=== PATIENT | female | born 1985 | race Caucasian/White ===

== ENCOUNTER 2025-07-19 08:06 | Emergency (ER) | payer OTHER ==
[~2025-07-19] VITALS: Ht 157.5 cm; Wt 118.2 kg
[2025-07-19 08:11] VITALS: BP 168/102; PULSE 78; TEMP 97.9; O2SAT 98
[2025-07-19 08:46] LABS: LEUKOCYTE ESTERASE ,URINE TRACE (Neg); NITRITES, URINE NEGATIVE (Neg); OCCULT BLOOD,URINE LARGE (Neg)
[2025-07-19 08:50] LABS: URINE HCG NEGATIVE (NEG)
[2025-07-19 08:51] LABS: UA COLLECTION TYPE CLN CATCH MIDSTREAM
[2025-07-19 08:55] LABS: SQUAMOUS EPITHELIAL CELL,UR FEW /LPF (FEW); YEAST FEW /HPF (NEGATIVE)
--- NOTE | 2025-07-19 09:19 | Physician Documentation ---
History of Present Illness ~ Chief Complaint: Flank Pain Stated Complaint: KIDNEY STONES Time Seen by MD: 08:52 HPI 39-year-old female presents to the ED with a complaint of right flank and back pain. States she does have a history of kidney stones. 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 He had denies any urinary symptoms denies any fevers or nausea vomiting. States that the pain is worse when sitting to standing. Day of Onset: Jul 19, 2025 Medication Reconciliation Allergies: Coded Allergies: No Known Allergies (Unverified , 07/19/25) Scheduled Sulfamethoxazole/Trimethoprim (Septra Ds Tab), 1 TAB PO Q12H Review of Systems All Other Systems at this time: Reviewed and Negative ROS As stated above in the HPI, otherwise all systems are reviewed and negative. Physical Exam Physical Exam Vital Signs: Temperature: 97.9, Heart Rate: 78, Respiratory Rate: 15, BP: 168/102, Pulse Oximetry: 98, Weight: 118.180 Oxygen Flow Rate: 0 Physical Exam General: Alert, no apparent distress. Back: Tender to the right lumbar region via palpation negative CVA tenderness Respiratory: Lungs clear, no respiratory distress. Cardiovascular: Regular rate and rhythm, no murmurs. Gastrointestinal: Soft, nontender, nondistended. Bowels sounds present. Neurologic: Oriented x4. Psychiatric: Normal mood and affect. Skin: Normal color, warm and dry. No edema, no ecchymosis. Progress Results/Orders Results/Orders Orders - JACOB BARBOUR PHILOSOPHY PROFESSOR Ct Abdomen Pelvis (07/19/25 11:15) Completed Orders - JACOB BARBOUR PHILOSOPHY PROFESSOR Cbc/Diff (07/19/25 08:59) BMP (07/19/25 08:59) Lipase (07/19/25 08:59) CMP (07/19/25 08:59) Ketorolac Trometh 30mg/Ml Vial (Toradol (07/19/25 09:15) Ct Abdomen Pelvis (07/19/25 11:15) Vital Signs 07/19/25 07/19/25 07/19/25 08:11 09: 09:30 Temp 97.9 Pulse 78 Resp 15 15 15 B/P (MAP) 168/102 Pulse Ox 98 O2 Flow Rate 0 Laboratory Tests Test 07/19/25 08:16 07/19/25 09:48 Urine Specimen Description Cln catch midstream Urine Color Yellow Urine Clarity Slightly cloudy Urine pH 6.0 Urine Specific [place] 1.015 Urine Protein Negative Urine Glucose (UA) >=1000 H Urine Ketones Negative Urine Occult Blood Large H Urine Nitrite Negative Urine Bilirubin Negative Urine Urobilinogen 0.2 Urine Leukocyte Esterase Trace H Urine RBC 3-10 Urine WBC 10-20 H Urine Squamous Epithelial Cells Few Urine Bacteria 1+ Urine Yeast Few Urine Culture Indicated Indicated Volume Urine Centrifuged 10 ml Urine HCG, Qualitative Negative Urine Comment White Blood Count 4.8 Red Blood Count 5.03 Hemoglobin 13.8 Hematocrit 40.9 Mean Corpuscular Volume 81.3 Mean Corpuscular Hemoglobin 27.5 Mean Corpuscular Hemoglobin Concent 33.8 Red Cell Distribution Width 13.6 Platelet Count 191 Mean Platelet Volume 9.9 Neutrophils (%) (Auto) 61.6 Lymphocytes (%) (Auto) 27.6 Monocytes (%) (Auto) 7.2 Eosinophils (%) (Auto) 2.9 Basophils (%) (Auto) 0.7 Neutrophils # (Auto) 2.9 Lymphocytes # (Auto) 1.3 Monocytes # (Auto) 0.3 Eosinophils # (Auto) 0.1 Basophils # (Auto) 0.0 CBC Comment Sodium Level 140 Potassium Level 4.4 Chloride Level 105 Carbon Dioxide Level 26.6 Anion Gap 8 Blood Urea Nitrogen 15 Creatinine 0.45 Estimated GFR/1.73 m2 > 90 BUN/Creatinine Ratio 33.3 H Glucose Level 102 Calcium Level 8.4 L Total Bilirubin 0.4 Aspartate Amino Transf (AST/SGOT) 18 Alanine Aminotransferase (ALT/SGPT) 27 Alkaline Phosphatase 49 Total Protein 7.0 Albumin 3.5 Globulin 3.5 Albumin/Globulin Ratio 1.0 L Lipase 22 Chemistry Comments Microbiology Date/Time Source Procedure Growth Status 07/19/25 08:55 Urine Clean Catch Midstream Urine Culture - Preliminary Culture received. Resulted Medical Decision Making Additional information obtaine: N/A Findings Assured the patient that her CT showed no signs of kidney stones. Does have a minor UTI which I will treat her for. This does not come as a surprise as she recently had a UTI and it sounds like bacteria did not fully resolve we will send her home on sulfa as she was given Keflex before Differential Dx:Considerations: Fracture, Pyelonephritis, Urinary obstruction, Urinary tract infection Departure Disposition: 01 HOME / SELF CARE / HOMELESS Impression: Primary Impression: Strain of lumbar region Additional Impression: Acute urinary tract infection Condition: Improved Discharge Instructions: Lumbosacral Strain Referrals: NO PRIMARY CARE PROVIDER (PCP) Prescriptions Sulfamethoxazole/Trimethoprim (Septra Ds Tab) 800 Mg/160 Mg Tablet 1 TAB PO Q12H for 7 Days, #14 TAB Prov: JACOB BARBOUR PHILOSOPHY PROFESSOR 07/19/25 Education Educated: Patient Educated regarding: diagnosis Signature Scribe Signature: Attestation: Scribed for Jacob Barbour Director Information by Jacob Barbour - BOB . 07/19/25 09:19 JACOB BARBOUR NP Jul 19, 2025 09:19
[2025-07-19] MEDS: ketorolac trometh 30MG/ML vial 30 MG/ML VIAL IM ONE (09:25)
[2025-07-19 09:30] VITALS: RESP 15
[2025-07-19 10:18] LABS: MEAN PLATELET VOLUME 9.9 FL (7.4-10.4); RED CELL DISTRIBUTION WIDTH 13.6 % (11.5-14.5)
[2025-07-19 10:41] LABS: CREATININE 0.45 MG/DL (0.40-0.90); TOTAL CARBON DIOXIDE 26.6 MMOL/L (24-32); eCRCL 131 ML/MIN; eGFR > 90 ML/MIN
--- NOTE | 2025-07-19 11:28 | RADIOLOGY REPORT ---
Exam: CT CT ABDOMEN PELVIS History: hematuria COMPARISON: None Technique: Multidetector spiral CT of the abdomen and pelvis was performed from lung bases to pubic symphysis without intravenous contrast. Axial, coronal and sagittal multiplanar reformats were performed by the technologist on a separate workstation. Radiation Dose : 1. Abdomen/Pelvis: CTDIvol 36.88 mGy, DLP 1884.71 mGy*cm. Findings: Lung Bases: No acute or significant lung base finding. Normal heart size. No pleural or pericardial effusion. Liver: The liver is normal in size. No focal lesions. Normal hepatic vascular enhancement. Gallbladder and Biliary Tree: Unremarkable Spleen: Unremarkable Pancreas: The pancreas is normal in appearance without focal lesions or abnormal enhancement. Adrenal Glands: Unremarkable Kidneys: No hydronephrosis. Bladder: Unremarkable Bowel: The stomach is grossly normal in appearance. Small bowel and colon are normal in caliber and distribution. Normal appendix is visualized in the right lower quadrant without findings of appendicitis. Ascites: Absent Lymphadenopathy: No mesenteric, retroperitoneal or periportal lymphadenopathy. Abdominal Wall and Mesentery: Unremarkable. Vasculature: The visualized abdominal aorta is normal in size and caliber. Abdominal and pelvic vessels demonstrate normal enhancement. Pelvic Organs: Unremarkable Musculoskeletal: No aggressive focal bony lesions, acute fractures or dislocation. IMPRESSION: No acute abdominal or pelvic finding. Radiation optimization: All CT scans at this facility use at least one of these dose optimization techniques: automated exposure control mA and/or kV adjustment per patient size (includes targeted exams where dose is matched to clinical indication) or iterative reconstruction.
[2025-07-19] MEDS ORDERED: SULF1TAB45 PO (11:49)
== END 2025-07-19 12:00 | disposition home or self-care (01) ==
LOC: ER 08:07
DX: S39.012A Strain of muscle, fascia and tendon of lower back, initial encounter (principal); Z88.2 Allergy status to sulfonamides; Z87.442 Personal history of urinary calculi; N39.0 Urinary tract infection, site not specified; X50.1XXA Overexertion from prolonged static or awkward postures, initial encounter; Y93.89 Activity, other specified; Y92.89 Other specified places as the place of occurrence of the external cause; Y99.8 Other external cause status
CPT/HCPCS: 36415; 74176; 80053; 81001; 81025; 83690; 85025; 87088; 96372; 99285; J1885